=== PATIENT | male | born 2000 | race Caucasian/White ===

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

== ENCOUNTER 2018-04-19 09:24 | Emergency (ER) | payer OTHER ==
[2018-04-19 09:41] VITALS: BP 122/72; PULSE 87; RESP 16; TEMP 98.4
--- NOTE | 2018-04-19 10:39 | ED ---
General Adult HPI - General Chief complaint: Headache Stated complaint: Headache Time Seen by Provider: 04/19/18 09:59 Source: patient, RN notes reviewed Mode of arrival: ambulatory Limitations: no limitations - History of Present Illness Initial comments: Patient 17-year-old male presenting to the emergency room today with a chief complaint of a migraine headache. Patient does admit that he has a history of migraines. He states he began having a migraine this morning when he woke up approximate 5 AM. He does admit that it affects vision on the left side. And also has some numbness tingling sensation to the right arm. He states does have a headache. He states the symptoms are consistent with migraines is had in the past. He states he was seen here in the emergency room for several years ago had a CAT scan obtained. He states that he was given medication for migraines and advised to use this if he began feeling symptoms. He states he recently ran out of this medicine that he received and does not remember the name. Patient states that when he takes this he usually lays down and then approximately half an hour to an hour later he feels well again. Patient states he was at work earlier today but had to leave because he was not feeling well and decided to come here to see if he can get that medication. Patient denies any recent fever, chills, shortness of breath, chest pain, back pain, abdominal pain, nausea or vomiting, constipation or diarrhea, or any other complaints. - Related Data Home Medications Medication Instructions Recorded Confirmed Ibuprofen [Motrin] 800 mg PO Q6H PRN 04/19/18 04/19/18 Previous Rx's Medication Instructions Recorded Butalb/Acetaminophen/Caffeine 1 cap PO QID PRN #20 cap 04/19/18 [Fioricet 50-300-40 mg Capsule] Allergies Allergy/AdvReac Type Severity Reaction Status Date / Time bee venom protein (honey bee) Allergy Unknown Verified 04/19/18 09:48 Review of Systems ROS Statement: Those systems with pertinent positive or pertinent negative responses have been documented in the HPI. ROS Other: All systems not noted in ROS Statement are negative. Past Medical History Past Medical History: No Reported History Additional Past Medical History / Comment(s): migraine History of Any Multi-Drug Resistant Organisms: None Reported Past Surgical History: Ear Surgery, Hernia Repair Past Psychological History: No Psychological Hx Reported Smoking Status: Never smoker Past Alcohol Use History: None Reported Past Drug Use History: None Reported General Exam - General Exam Comments Initial Comments: General: The patient is awake and alert, in no distress, and does not appear acutely ill. Eye: Pupils are equal, round and reactive to light, extra-ocular movements are intact. No nystagmus. There is normal conjunctiva bilaterally. No signs of icterus. Ears, nose, mouth and throat: There are moist mucous membranes and no oral lesions. Neck: The neck is supple, there is no tenderness or JVD. Cardiovascular: There is a regular rate and rhythm. No murmur, rub or gallop is appreciated. Respiratory: Lungs are clear to auscultation, respirations are non-labored, breath sounds are equal. No wheezes, stridor, rales, or rhonchi. Musculoskeletal: Normal ROM, no tenderness. Strength 5/5. Sensation intact. Pulses equal bilaterally 2+. Neurological: A&O x 3. CN II-XII intact, There are no obvious motor or sensory deficits. Coordination appears grossly intact. Speech is normal. Skin: Skin is warm and dry and no rashes or lesions are noted. Psychiatric: Cooperative, appropriate mood & affect, normal judgment. Limitations: no limitations Course Vital Signs 04/19/18 09:38 Temperature 98.4 F Pulse Rate 87 Respiratory 16 Rate Blood Pressure 122/72 O2 Sat by Pulse 99 Oximetry Medical Decision Making - Medical Decision Making Patient examined here in the emergency room shows no signs of distress. He does admit to a migraine headache but states all symptoms are consistent with migraines is had in the past. He states he gets these every few months. He states he usually takes medication that was prescribed to him once when he was seen here in the emergency room approximate 3 years ago his last him up until recently when he recently ran out. He states that that medication usually works well for him. Old records were reviewed showing that patient was given a prescription for Fioricet. Was discussed with patient about further workup here in the emergency room or IV and medications here. Patient has declined. He states that usually just takes this pill lays down and feels well problem hour later. Patient states he does not need any other testing or medications. Patient will be given prescription and is advised follow-up with the family physician. Advised return if any symptoms increase or worsen. Disposition Clinical Impression: Migraine Disposition: HOME SELF-CARE Condition: Good Instructions: Migraine Headache (ED) Additional Instructions: Please use medication as discussed. Please follow-up with family doctor in the next 2 days of symptoms have not improved. Please return to emergency room if the symptoms increase or worsen or for any other concerns. Prescriptions: Butalb/Acetaminophen/Caffeine [Fioricet 50-300-40 mg Capsule] 1 cap PO QID PRN # 20 cap PRN Reason: Headache Is patient prescribed a controlled substance at d/c from ED?: No Referrals: None,Stated [Primary Care Provider] - 1-2 days Time of Disposition: 10:32
== END 2018-04-19 10:39 | disposition home or self-care (01) ==
LOC: EC 09:24
DX: G43.909 Migraine, unspecified, not intractable, without status migrainosus (principal); R20.0 Anesthesia of skin; R20.2 Paresthesia of skin; Z91.018 Allergy to other foods
CPT/HCPCS: 99283

== ENCOUNTER 2018-06-09 10:21 | Emergency (ER) | payer OTHER ==
[2018-06-09 10:25] VITALS: RESP 16
--- NOTE | 2018-06-09 10:35 | ED ---
General Adult HPI - General Chief complaint: Extremity Injury, Lower Stated complaint: rt leg injury Time Seen by Provider: 06/09/18 10:27 Source: patient, RN notes reviewed Mode of arrival: wheelchair Limitations: no limitations - History of Present Illness Initial comments: Patient's a 17-year-old male presented to the emergency room today with chief complaint of injury to the right ankle that occurred approximately at midnight. He states he was wrestling with a friend and somehow twisted his right ankle and leg. Doesn't pain distal right [place] down into the ankle area. States he has limited range of motion due to pain. Patient does need to previous fracture in this ankle proxy 5 years ago. Patient denies any other injuries or complaints. Patient denies any recent fever, chills, shortness of breath, chest pain, back pain, abdominal pain, nausea or vomiting, headaches or visual changes , or any other complaints. - Related Data Home Medications Medication Instructions Recorded Confirmed Ibuprofen [Motrin] 800 mg PO Q6H PRN 04/19/18 04/19/18 Previous Rx's Medication Instructions Recorded Butalb/Acetaminophen/Caffeine 1 cap PO QID PRN #20 cap 04/19/18 [Fioricet 50-300-40 mg Capsule] Ibuprofen [Motrin] 800 mg PO Q6HR #30 tab 06/09/18 Allergies Allergy/AdvReac Type Severity Reaction Status Date / Time bee venom protein (honey bee) Allergy Unknown Verified 06/09/18 10:25 Review of Systems ROS Statement: Those systems with pertinent positive or pertinent negative responses have been documented in the HPI. ROS Other: All systems not noted in ROS Statement are negative. Past Medical History Past Medical History: No Reported History Additional Past Medical History / Comment(s): migraine History of Any Multi-Drug Resistant Organisms: None Reported Past Surgical History: Ear Surgery, Hernia Repair Past Psychological History: No Psychological Hx Reported Smoking Status: Never smoker Past Alcohol Use History: Occasional Past Drug Use History: None Reported General Exam - General Exam Comments Initial Comments: General: The patient is awake and alert, in no distress, and does not appear acutely ill. Neck: The neck is supple, there is no tenderness or JVD. Musculoskeletal: Patient does have moderate swelling to the right ankle is tender over both lateral medial malleolus. Mild tenderness mid shaft of the right tibia. No specific bony tenderness down onto the right foot. His pedal pulses 2+. Strength unable be assessed due to pain. Sensations are intact. Neurological: A&O x 3. CN II-XII intact, There are no obvious motor or sensory deficits. Coordination appears grossly intact. Speech is normal. Skin: Skin is warm and dry and no rashes or lesions are noted. Psychiatric: Normal mood and affect. Limitations: no limitations Course Vital Signs 06/09/18 10:23 Temperature 98.4 F Pulse Rate 106 H Respiratory 16 Rate Blood Pressure 107/73 O2 Sat by Pulse 98 Oximetry Medical Decision Making - Medical Decision Making Patient's x-rays have been reviewed and case was discussed with attending physician Dr. Lovelace who did discuss the case with on-call orthopedics Dr. English recommends a posterior splint and following up in the office. Patient has been splinted in a posterior short OCL splint. Neurovascular rechecked and intact. Patient advised return to emergency room symptoms increase or worsen. Patient will be given a prescription for crutches and advised nonweightbearing. Advised continued ice and elevate the affected area and following up with orthopedics in 2 days. Disposition Clinical Impression: Ankle fracture Disposition: HOME SELF-CARE Condition: Good Additional Instructions: Please follow-up with orthopedics in the next 2 days. Please see splinted in place until follow-up appointment. Please continue to ice elevate the affected area and use crutches with nonweightbearing. Please return to emergency room if any symptoms increase worsen. Prescriptions: Ibuprofen [Motrin] 800 mg PO Q6HR #30 tab Is patient prescribed a controlled substance at d/c from ED?: No Referrals: None,Stated [Primary Care Provider] - 1-2 days Arian English MD [STAFF PHYSICIAN] - 1-2 days Time of Disposition: 11:52
--- NOTE | 2018-06-09 11:04 | XR ---
EXAMINATION TYPE: XR tibia fibula 2 views RT, XR ankle complete 3 views RT XR foot complete RT DATE OF EXAM: 06/09/2018 COMPARISON: NONE HISTORY: 17-year-old male with pain after injury FINDINGS: Tibia/fibula: Spiral fracture of the mid fibular shaft with a butterfly fragment. Ankle: Circumferential soft tissue swelling. Mildly displaced transverse fracture of the medial malleolus wi th medial clear space widening. Additional mildly displaced fracture of the posterior malleolus. Foot: Incidental bipartite tibial sesamoid. No acute fracture, subluxation, or dislocation. IMPRESSION: Maisonneuve fracture with unstable ankle and torn syndesmosis. The fibular fracture is at the mid shaft level
[2018-06-09] MEDS ORDERED: IBUPROFEN 800 MG TAB PO STA (11:46)
[2018-06-09 12:09] VITALS: BP 138/70; PULSE 78; TEMP 97.8
== END 2018-06-09 12:08 | disposition home or self-care (01) ==
LOC: EC 10:21
DX: S82.891A Other fracture of right lower leg, initial encounter for closed fracture (principal); Z91.030 Bee allergy status; X50.1XXA Overexertion from prolonged static or awkward postures, initial encounter; Y93.72 Activity, wrestling; Y92.009 Unspecified place in unspecified non-institutional (private) residence as the place of occurrence of the external cause
CPT/HCPCS: 29515; 99283

== ENCOUNTER 2018-06-17 13:19 | Day surgery (SDC) | payer OTHER ==
[2018-06-14 09:25] VITALS: BMI 31.1
[~2018-06-17 13:19] MED LIST: DEXAMETHASONE SOD PHOSPHATE 10 MG/ML 1 ML VIAL IV ONE; HYDROmorphone 0.5 MG/0.5 ML SYRINGE IVP PRN; LACTATED RINGERS 1,000 ML IV SCH; LIDOCAINE 1% 20 ML VIAL (10MG/ML) FOR IV START INTRADERMA PRN; MIDAZOLAM 2 MG/2 ML VIAL IV PRN; ONDANSETRON 4 MG/2 ML VIAL IVP ONE; SCOPOLAMINE 1.5MG/72HR PATCH TRANSDERM ONE; ceFAZolin IN SWFI 2 GM/20 ML SYRINGE IVP ONE
[2018-06-17] MEDS ORDERED: SUCCINYLCHOLINE CHLORIDE 100 MG/5 ML SYR IV ONE (16:15)
[2018-06-17] MEDS ORDERED: ePHEDrine SULFATE/0.9% NACL/PF 50 MG/5 ML SYRINGE IV ONE (16:15)
[2018-06-17] MEDS ORDERED: MIDAZOLAM 2 MG/2 ML VIAL ONE (16:15)
[2018-06-17] MEDS ORDERED: fentaNYL (PF) 50 MCG/ML 2 ML AMP ONE (16:15)
[2018-06-17] MEDS ORDERED: LIDOCAINE 1% INJ 10MG/ML (20 ML MDV) ONE (16:15)
[2018-06-17] MEDS ORDERED: MORPHINE SULFATE 10 MG/ML SYRINGE ONE (16:15)
[2018-06-17] MEDS ORDERED: HYDROmorphone (PF) 1 MG/ML ONE (16:15)
[2018-06-17] MEDS ORDERED: PROPOFOL 10 MG/ML 20 ML VIAL IV ONE (16:15)
[2018-06-17] MEDS ORDERED: LACTATED RINGERS 1,000 ML IV ONE ×2 (17:00→19:39)
[2018-06-17] MEDS ORDERED: HYDROcodone/APAP 5-325MG 1 EACH TAB PO PRN ×2 (18:40)
[2018-06-17] MEDS ORDERED: HYDROmorphone 1 MG/ML 1 ML SYRINGE IVP PRN ×2 (18:40)
[2018-06-17] MEDS ORDERED: ONDANSETRON 4 MG/2 ML VIAL IVP PRN (18:40)
[2018-06-17] MEDS ORDERED: LACTATED RINGERS 1,000 ML IV SCH (18:45)
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
[2018-06-17] MEDS ORDERED: HYDROmorphone 1 MG/ML 1 ML SYRINGE IVP ONE ×2 (19:27→19:34)
[2018-06-17 19:32] VITALS: TEMP 97
[2018-06-17 19:35] VITALS: RESP 16
[2018-06-17 20:22] VITALS: BP 152/80; PULSE 93
--- NOTE | 2018-06-18 08:03 | XR ---
Limited right ankle HISTORY: Fracture 4 intraoperative C-arm images document the procedure.
--- NOTE | 2018-06-18 08:12 | FL ---
Fluoroscopy HISTORY: Pain 3 minutes 42 seconds fluoroscopy time supplied to the referring clinician. 4 intraoperative C-arm im ages document the procedure. See dictated report from orthopedic surgery.
== END 2018-06-17 20:38 | disposition home or self-care (01) ==
LOC: OR 13:19
PROVIDERS: ATTEND Orthopaedic Surgery
DX: S82.861A Displaced Maisonneuve's fracture of right leg, initial encounter for closed fracture (principal); W50.0XXA Accidental hit or strike by another person, initial encounter; Y93.72 Activity, wrestling
CPT/HCPCS: 73600; 27766; 27829; C1713; J1100; J2405; J1170; J0690

== ENCOUNTER 2019-06-10 20:36 | Emergency (ER) | payer BC, OTHER ==
[2019-06-10 20:46] VITALS: TEMP 98.3
[2019-06-10] MEDS ORDERED: ACET/COD 300 MG/30 MG STARTER PACK 6 TAB BTL PO STA (21:27)
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
[2019-06-10 22:28] VITALS: BP 122/80; PULSE 73; RESP 19
== END 2019-06-10 22:28 | disposition home or self-care (01) ==
LOC: EC 20:36
DX: T23.301A Burn of third degree of right hand, unspecified site, initial encounter (principal); T23.371A Burn of third degree of right wrist, initial encounter; T31.0 Burns involving less than 10% of body surface; K21.9 Gastro-esophageal reflux disease without esophagitis; Z79.899 Other long term (current) drug therapy; Z91.030 Bee allergy status; Z91.09 Other allergy status, other than to drugs and biological substances; X08.8XXA Exposure to other specified smoke, fire and flames, initial encounter
CPT/HCPCS: 99283

== ENCOUNTER 2023-01-21 16:07 | Emergency (ER) | payer BC ==
[2023-01-21] MEDS ORDERED: KETOROLAC 15 MG/ML 1 ML VIAL IM STA (16:20)
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
--- NOTE | 2023-01-21 17:01 | XR ---
EXAMINATION TYPE: XR ankle complete RT DATE OF EXAM: 01/21/2023 4:50 PM INDICATION: Patient age:Male; 22 years old; Reason for study: ankle injury; . COMPARISON: Plain film from 2018 TECHNIQUE: The right ankle is imaged in frontal, lateral and oblique projections. FINDINGS: The proximal syndesmotic screw is fractured projecting over the fibula. The syndesmotic anchor more d istally mediolateral components appear stable. There is no evidence of acute osseous pathology. The joint spaces are well-preserved without evidence of subluxation or dislocation. Kager's fat pad is in tact. Mild soft tissue swelling around the ankle. IMPRESSION: 1. No evidence of acute fracture. 2. Fracture of the proximal syndesmotic screw. 3. Soft tissue swelling around the ankle.
[2023-01-21 17:39] VITALS: BP 118/72; PULSE 72; RESP 14; TEMP 97.9
== END 2023-01-21 17:39 | disposition home or self-care (01) ==
LOC: EC 16:07
DX: S93.401A Sprain of unspecified ligament of right ankle, initial encounter (principal); K21.9 Gastro-esophageal reflux disease without esophagitis; Z79.899 Other long term (current) drug therapy; Z91.030 Bee allergy status; Z91.048 Other nonmedicinal substance allergy status; X50.1XXA Overexertion from prolonged static or awkward postures, initial encounter
CPT/HCPCS: 73610; 99283; 96372; J1885

== ENCOUNTER 2023-09-30 02:02 | Emergency (ER) | payer BC ==
[2023-09-30 02:14] VITALS: BP 143/87; PULSE 101; RESP 18; TEMP 98.7
[2023-09-30] MEDS ORDERED: LIDOCAINE 2%-EPI 1:100,000 20 ML VIAL SQ STA (02:15)
[2023-09-30] MEDS ORDERED: KETOROLAC 15 MG/ML 1 ML VIAL IM STA (02:25)
[2023-09-30] MEDS ORDERED: BACITRACIN OINT 1 EACH PACKET TOPICAL ONE (04:02)
--- NOTE | 2023-09-30 04:10 | ED ---
General Adult HPI - General Chief complaint: Wound/Laceration Stated complaint: Laceration on arm Time Seen by Provider: 09/30/23 02:12 Source: patient Mode of arrival: ambulatory Limitations: no limitations - History of Present Illness Initial comments: A 22-year-old male presenting to the ED with a chief complaint of laceration. Prior to arrival, patient reports that he became frustrated and punched a glass window which then broke. This caused shards to fall onto his right forearm causing laceration. No other injuries at this time. No status up-to-date. No other complaints. - Related Data Home Medications Medication Instructions Recorded Confirmed Migraine Medication 1 tab PO DIRECTED 06/14/18 06/10/19 raNITIdine HCL [Zantac] 75 mg PO HS 06/10/19 06/10/19 Previous Rx's Medication Instructions Recorded Ibuprofen [Motrin] 800 mg PO Q6HR #30 tab 06/09/18 Ibuprofen [Motrin] 800 mg PO Q6HR #30 tab 06/10/19 Allergies Allergy/AdvReac Type Severity Reaction Status Date / Time cat dander Allergy Unknown Itchy Verified 01/21/23 16:10 eyes, Runny nose, Sneezing bee venom protein (honey bee) Allergy Swelling, Verified 01/21/23 16:10 Dizziness Review of Systems ROS Statement: Those systems with pertinent positive or pertinent negative responses have been documented in the HPI. ROS Other: All systems not noted in ROS Statement are negative. Past Medical History Past Medical History: GERD/Reflux Additional Past Medical History / Comment(s): HX MIGRAINES- STATES APPROX Q 6 MONTHS., NO CURRENT RX FOR GERD., INJURY TO RIGHT ANKLE- HAS SPLINT AND USING CRUTCHES. History of Any Multi-Drug Resistant Organisms: None Reported Past Surgical History: Ear Surgery, Hernia Repair Additional Past Surgical History / Comment(s): TUBES IN EARS, TESTICULAR HERNIA. Past Anesthesia/Blood Transfusion Reactions: No Reported Reaction Past Psychological History: No Psychological Hx Reported Smoking Status: Never smoker Past Alcohol Use History: Occasional Past Drug Use History: None Reported - Past Family History Mother Family Medical History: No Reported History General Exam Limitations: no limitations General appearance: alert, in no apparent distress Neck exam: Present: normal inspection Respiratory exam: Present: normal lung sounds bilaterally Cardiovascular Exam: Present: regular rate, normal rhythm GI/Abdominal exam: Present: soft Extremities exam: Present: other (4 lacerations to the patient's anterior right forearm just distal to the elbow.) Neurological exam: Present: alert, oriented X3 Skin exam: Present: warm, dry Course Vital Signs 09/30/23 02:03 Temperature 98.7 F Pulse Rate 101 H Respiratory 18 Rate Blood Pressure 143/87 O2 Sat by Pulse 97 Oximetry Procedures - Laceration Laceration #1 Indication: laceration Site: upper extremity Description: linear, irregular Depth: simple, single layer Anesthesia Technique: local infiltration Amount (mls): 6 Pre-repair: wound explored, irrigated extensively Type of Sutures: nylon Size of Sutures: 4-0 Number of Sutures: 21 Technique: simple, interrupted Patient Tolerated Procedure: well, no complications Additional Comments: 4 separate lacerations. 2 lacerations on the lateral aspect of the anterior forearm both measuring approximately 1 cm. 2 simple interrupted sutures were placed in these. Medial to these 2 additional larger lacerations in which 17 sutures were used total. All lacerations were irrigated copiously with no evidence of foreign object. Medical Decision Making - Medical Decision Making Was pt. sent in by a medical professional or institution ( PA, LOG PROCESSOR OPERATOR, urgent care, hospital, or assisted...) When possible be specific @ -No Did you speak to anyone other than the patient for history (EMS, parent, family, police, friend...)? What history was obtained from this source @ -No Did you review nursing and triage notes (agree or disagree)? Why? @ -I reviewed and agree with nursing and triage notes Were old charts reviewed (outside hosp., previous admission, EMS record, old EKG, old radiological studies, urgent care reports/EKG's, assisted records)? Report findings @ -No old charts were reviewed Differential Diagnosis (chest pain, altered mental status, abdominal pain women, abdominal pain men, vaginal bleeding, weakness, fever, dyspnea, syncope, headache, dizziness, GI bleed, back pain, seizure, CVA, palpatations, mental health, musculoskeletal)? @ -Differential Musculoskeletal Muscular strain, contusion, ligament sprain, fracture, arthritis, septic arthritis, bursitis, cellulitis, muscle spasm, nerve compression, DVT, arterial occlusion, herpes zoster, electrolyte abnormality, tumor.... This is not meant to be in all inclusive list EKG interpreted by me (3pts min.). @ -None X-rays interpreted by me (1pt min.). @ -None done CT interpreted by me (1pt min.). @ -None done U/S interpreted by me (1pt. min.). @ -None done What testing was considered but not performed or refused? (CT, X-rays, U/S, labs)? Why? @ -None What meds were considered but not given or refused? Why? @ -None Did you discuss the management of the patient with other professionals (professionals i.e. , PA, LOG PROCESSOR OPERATOR, lab, RT, psych nurse, home health care social worker, refinery operator helper crude unit, teacher, operations officer afloat, piano case and bench assembler)? Give summary @ -No Was smoking cessation discussed for >3mins.? @ -No Was critical care preformed (if so, how long)? @ -No Were there social determinants of health that impacted care today? How? (Homelessness, low income, unemployed, alcoholism, drug addiction, transportation, low edu. Level, literacy, decrease access to med. care, custodial, r ehab)? @ -No Was there de-escalation of care discussed even if they declined (Discuss DNR or withdrawal of care, Hospice)? DNR status @ -No What co-morbidities impacted this encounter? (DM, HTN, Smoking, COPD, CAD, Cancer, CVA, ARF, Chemo, Hep., AIDS, mental health diagnosis, sleep apnea, morbid obesity)? @ -None Was patient admitted / discharged? Hospital course, mention meds given and route, prescriptions, significant lab abnormalities, going to OR and other pertinent info. @ -Discharge A 22-year-old male presents to the ED with lacerations to his right anterior forearm after punching a glass window. Lacerations were repaired. Please see procedure note for further details. After repair laceration was covered with antibiotic ointment and dressed. Advised proper wound care. Discharged home in stable condition. Discussed return precautions with patient and family who verbalizes agreement. Undiagnosed new problem with uncertain prognosis? @ -No Drug Therapy requiring intensive monitoring for toxicity (Heparin, Nitro, Insulin, Cardizem)? @ -No Were any procedures done? @ -No Diagnosis/symptom? @ -Laceration Acute, or Chronic, or Acute on Chronic? @ -Acute Uncomplicated (without systemic symptoms) or Complicated (systemic symptoms)? @ -Uncomplicated Side effects of treatment? @ -No Exacerbation, Progression, or Severe Exacerbation? @ -No Poses a threat to life or bodily function? How? (Chest pain, [place], [place], pneumonia, PE, COPD, DKA, ARF, appy, cholecystitis, CVA, Diverticulitis, Homicidal, Suicidal, threat to staff... and all critical care pts) @ -No Disposition Clinical Impression: Laceration Disposition: HOME SELF-CARE Condition: Good Instructions (If sedation given, give patient instructions): Care For Your Stitches (ED) Additional Instructions: Please return to the Emergency Department if symptoms worsen or any other concerns. Monitor for signs of infection including redness, warmth, swelling, tenderness to the touch, fever. Return in 10-14 days for suture removal. Is patient prescribed a controlled substance at d/c from ED?: No Referrals: None,Stated [Primary Care Provider] - 1-2 days Time of Disposition: 04:17
== END 2023-09-30 04:22 | disposition home or self-care (01) ==
LOC: EC 02:02
DX: S51.811A Laceration without foreign body of right forearm, initial encounter (principal); K21.9 Gastro-esophageal reflux disease without esophagitis; Z79.899 Other long term (current) drug therapy; Z91.030 Bee allergy status; Z88.8 Allergy status to other drugs, medicaments and biological substances; W25.XXXA Contact with sharp glass, initial encounter
CPT/HCPCS: 12001; 99283; 96372; J1885

== ENCOUNTER 2024-10-21 04:01 | Emergency (ER) | payer BC ==
[2024-10-21 04:07] VITALS: BP 125/71; PULSE 96; RESP 18; TEMP 98.3
--- NOTE | 2024-10-21 04:17 | ED ---
Chest Pain HPI - General Chief Complaint: Chest Pain Stated Complaint: chest pain Time Seen by Provider: 10/21/24 04:14 Source: patient, RN notes reviewed, old records reviewed Mode of arrival: wheelchair Limitations: no limitations - History of Present Illness Initial Comments: This is a 24-year-old male to the ER for evaluation of chest pain left-sided chest pain weakness some tingling and numbness of the arm and leg at bedside became some concern for patient's chest pain as he continued to complain of chest pain here in the emergency department and does complain of chest pain currently with some nausea does admit to alcohol mago MELENDEZ Complaint: chest pain -: hour(s) Onset: during rest, after eating, other (Drinking alcohol today) Pain Location: substernal, left chest Severity: moderate Quality: aching Consistency: intermittent Improves With: nothing Worsens With: nothing Anginal Symptoms: nausea Other Symptoms: palpitations Treatments Prior to Arrival: none - Related Data Home Medications Medication Instructions Recorded Confirmed Migraine Medication 1 tab PO DIRECTED 06/14/18 06/10/19 raNITIdine HCL [Zantac] 75 mg PO HS 06/10/19 06/10/19 Previous Rx's Medication Instructions Recorded Ibuprofen [Motrin] 800 mg PO Q6HR #30 tab 06/09/18 Ibuprofen [Motrin] 800 mg PO Q6HR #30 tab 06/10/19 Allergies Allergy/AdvReac Type Severity Reaction Status Date / Time cat dander Allergy Unknown Itchy Verified 10/21/24 04:03 eyes, Runny nose, Sneezing bee venom protein (honey bee) Allergy Swelling, Verified 10/21/24 04:03 Dizziness Review of Systems ROS Statement: Those systems with pertinent positive or pertinent negative responses have been documented in the HPI. ROS Other: All systems not noted in ROS Statement are negative. EKG Findings - EKG Comments: EKG Findings:: EKG is sinus 92 ND 143 QRS 91 QTc 377 - EKG Results: EKG: interpreted by RIKKI Past Medical History Past Medical History: GERD/Reflux Additional Past Medical History / Comment(s): HX MIGRAINES- STATES APPROX Q 6 MONTHS., NO CURRENT RX FOR GERD., INJURY TO RIGHT ANKLE- HAS SPLINT AND USING CRUTCHES. History of Any Multi-Drug Resistant Organisms: None Reported Past Surgical History: Ear Surgery, Hernia Repair Additional Past Surgical History / Comment(s): TUBES IN EARS, TESTICULAR HERNIA. Past Anesthesia/Blood Transfusion Reactions: No Reported Reaction Past Psychological History: No Psychological Hx Reported Smoking Status: Never smoker Past Alcohol Use History: Occasional Past Drug Use History: None Reported - Past Family History Mother Family Medical History: No Reported History General Exam Limitations: no limitations General appearance: alert, in no apparent distress Head exam: Present: atraumatic, normocephalic, normal inspection Eye exam: Present: normal appearance, PERRL, EOMI. Absent: scleral icterus, conjunctival injection, periorbital swelling ENT exam: Present: normal exam, mucous membranes moist Neck exam: Present: normal inspection. Absent: tenderness, meningismus, lymphadenopathy Respiratory exam: Present: normal lung sounds bilaterally. Absent: respiratory distress, wheezes, rales, rhonchi, stridor Cardiovascular Exam: Present: regular rate, normal rhythm, normal heart sounds. Absent: systolic murmur, diastolic murmur, rubs, gallop, clicks GI/Abdominal exam: Present: soft, normal bowel sounds. Absent: distended, tenderness, guarding, rebound, rigid Extremities exam: Present: normal inspection, full ROM, normal capillary refill. Absent: tenderness, pedal edema, joint swelling, calf tenderness Back exam: Present: normal inspection Neurological exam: Present: alert, oriented X3, CN II-XII intact Psychiatric exam: Present: normal affect, normal mood Skin exam: Present: warm, dry, intact, normal color. Absent: rash Course Vital Signs 10/21/24 04:03 Temperature 98.3 F Pulse Rate 96 Respiratory 18 Rate Blood Pressure 125/71 O2 Sat by Pulse 98 Oximetry - Reevaluation(s) Reevaluation #1: 10/21/24 05:58 Medical records reviewed Reevaluation #2: 10/21/24 05:58 Symptoms unchanged Reevaluation #3: 10/21/24 05:59 Patient informed of results questions answered Reevaluation #4: Was pt. sent in by a medical professional or institution (, PA, COASTAL TUG MATE, urgent care, hospital, or [place] [facility]...) When possible be specific @ -no Did you speak to anyone other than the patient for history (EMS, parent, family, police, friend...)? What history was obtained from this source @ -no Did you review nursing and triage notes (agree or disagree)? Why? @ -agree Are old charts reviewed (outside hosp., previous admission, EMS record, old EKG, old radiological studies, urgent care reports/EKG's, [place] [facility] records)? Report findings @ -yes Differential Diagnosis (chest pain, altered mental status, abdominal pain women, abdominal pain men, vaginal bleeding, weakness, fever, dyspnea, syncope, headache, dizziness, GI bleed, back pain, seizure, CVA, palpatations, mental health, musculoskeletal)? @ -prior EKG interpreted by me (3pts min.). @ -yes X-rays interpreted by me (1pt min.). @ -yes negative for acute disease CT interpreted by me (1pt min.). @ -no U/S interpreted by me (1pt. min.). @ -no What testing was considered but not performed or refused? (CT, X-rays, U/S, labs)? Why? @ -none What meds were considered but not given or refused? Why? @ -none Did you discuss the management of the patient with other professionals (professionals i.e. , PA, COASTAL TUG MATE, lab, RT, psych nurse, social security assessor, integrated circuit fabricator, teacher, chief financial officer, pillowcase turner)? Give summary @ -no Was smoking cessation discussed for >3mins.? @ -no Was critical care preformed (if so, how long)? @ -no Were there social determinants of health that impacted care today? How? (Homelessness, low income, unemployed, alcoholism, drug addiction, transportation, low edu. Level, literacy, decrease access to med. care, intermediate, rehab)? @ -none Was there de-escalation of care discussed even if they declined (Discuss DNR or withdrawal of care, Hospice)? DNR status @ -no What co-morbidities impacted this encounter? (DM, HTN, Smoking, COPD, CAD, Cance r, CVA, ARF, Chemo, Hep., AIDS, mental health diagnosis, sleep apnea, morbid obesity)? @ -none Was patient admitted / discharged? Hospital course, mention meds given and route, prescriptions, significant lab abnormalities, going to OR and other pertinent info. @ - 24 male with nonspecific chest pain no acute findings here in the ER x-ray negative EKG negative troponin negative patient can be discharged home Discharge Undiagnosed new problem with uncertain prognosis? @ -no Drug Therapy requiring intensive monitoring for toxicity (Heparin, Nitro, Insulin, Cardizem)? @ -no Were any procedures done? @ -no Diagnosis/symptom? @ -Chest pain Acute, or Chronic, or Acute on Chronic? @ -Acute Uncomplicated (without systemic symptoms) or Complicated (systemic symptoms)? @ -Complicated Side effects of treatment? @ -no Exacerbation, Progression, or Severe Exacerbation? @ -exacerbation Poses a threat to life or bodily function? How? (Chest pain, [place], [place], pneumonia, PE, COPD, DKA, ARF, appy, cholecystitis, CVA, Diverticulitis, Homicidal, Suicidal, threat to staff... and all critical care pts) @ -yes with chest pain Reevaluation #5: Differential Chest Pain: Stable Angina, Unstable Angina, STEMI, NSTEMI Aortic Dissection, Pneumothorax, Musculoskeletal, Esophageal Spasm GERD, Cholecystitis, Pancreatitis, Zoster, this is not meant to be an all-inclusive list. Chest Pain MDM - MDM 24 male with nonspecific chest pain no acute findings here in the ER x-ray negative EKG negative troponin negative patient can be discharged home Disposition Clinical Impression: Atypical chest pain, Chest pain Disposition: HOME SELF-CARE Condition: Good Instructions (If sedation given, give patient instructions): Chest Pain (ED) Is patient prescribed a controlled substance at d/c from ED?: No Referrals: None,Stated [Primary Care Provider] - 1-2 days Time of Disposition: 06:15
[2024-10-21] MEDS: KETOROLAC 15 MG/ML 1 ML VIAL IVP STA (05:24)
[2024-10-21] MEDS: SODIUM CHLORIDE 0.9% 1,000 ML IV STA (05:24)
[2024-10-21 05:40] LABS: Basophils # (A) 0.1 k/uL (0-0.2); Basophils % (A) 1 %; Eosinophils # (A) 0.4 k/uL (0-0.7); Eosinophils % (A) 5 %; HCT 46.5 % (39.0-53.0); HGB 15.8 gm/dL (13.0-17.5); Lymphocytes # (A) 3.7 k/uL (1.0-4.8); Lymphocytes % (A) 44 %; MCHC 33.9 g/dL (31.0-37.0); MCV 91.2 fL (80.0-100.0); Mean Platelet Volume 7.3; Monocytes # (A) 0.3 k/uL (0-1.0); Monocytes % (A) 4 %; Neutrophils # (A) 3.6 k/uL (1.3-7.7); Neutrophils % (A) 43 %; Platelet Count 360 k/uL (150-450); RBC 5.09 m/uL (4.30-5.90); RDW 12.9 % (11.5-15.5); WBC 8.4 k/uL (3.8-10.6)
[2024-10-21 05:51] LABS: ALT 36 U/L (4-49); AST 25 U/L (17-59); African American GFR (CKD) >90 (>60 ml/min/1.73 sqM); Albumin 5.1 g/dL (3.5-5.0); Alkaline Phosphatase 51 U/L (38-126); Anion Gap 15 mmol/L; Blood Urea Nitrogen 11 mg/dL (9-20); Calcium 9.8 mg/dL (8.4-10.2); Carbon Dioxide 21 mmol/L (22-30); Chloride 105 mmol/L (98-107); Glucose 98 mg/dL (74-99); Lipase 99 U/L (23-300); Magnesium 2.3 mg/dL (1.6-2.3); Non-African American GFR(CKD) >90 (>60 ml/min/1.73 sqM); Potassium 4.7 mmol/L (3.5-5.1); Sodium 141 mmol/L (137-145); Total Bilirubin 0.4 mg/dL (0.2-1.3); Total Protein 8.5 g/dL (6.3-8.2)
[2024-10-21 06:11] LABS: INR 0.9 (<1.2); Partial Thromboplastin Time 25.8 sec (22.0-30.0); Prothrombin Time 10.2 sec (10.0-12.5)
--- NOTE | 2024-10-21 06:11 | XR ---
EXAMINATION TYPE: XR chest 2V DATE OF EXAM: 10/21/2024 4:39 AM COMPARISON: None. CLINICAL INDICATION: Male, 24 years old with history of cp, TECHNIQUE: Frontal and lateral views of the chest are obtained. FINDINGS: Overlying EKG leads are seen. Low lung volumes are present. There is no focal air space op acity, pleural effusion, or pneumothorax seen. The cardiac silhouette size is within normal limits. The osseous structures are intact. IMPRESSION: No acute pulmonary process. [facility], , 10/21/2024 6:06 AM
[2024-10-21 06:26] LABS: Alcohol 220 mg/dL
== END 2024-10-21 07:11 | disposition home or self-care (01) ==
LOC: EC 04:01
DX: R07.89 Other chest pain (principal); Z91.030 Bee allergy status; Z91.048 Other nonmedicinal substance allergy status
CPT/HCPCS: 36415; 93005; 80053; 83690; 83735; 84484; 85025; 85610; 85730; 80320; 71046; 99285; 96374; 96361 ×2; J1885